=== PATIENT | female | born 1980 | race Caucasian/White ===

== ENCOUNTER 2024-12-05 08:26 | Inpatient (IN) ==
[2024-12-05] MEDS: KETOROLAC TROMETHAMINE 15 MG/ML VIAL ONE (08:52)
[2024-12-05] MEDS: KETOROLAC TROMETHAMINE 15 MG/ML VIAL IV ONE (08:52)
[2024-12-05] MEDS: ONDANSETRON INJ 2 MG/ML 2 ML VIAL IV STA (08:52)
[2024-12-05] MEDS: ONDANSETRON INJ 2 MG/ML 2 ML VIAL ONE (08:53)
[2024-12-05 08:56] LABS: Basophils # (auto) 0.06 K/uL (0.00-0.20); Basophils % (auto) 0.5 %; Eosinophils # (auto) 0.02 K/uL (0.00-0.50); Eosinophils % (auto) 0.2 %; Hematocrit (blood only) 42.1 % (37.0-47.0); Immature Granulocytes # (auto) 0.05 K/uL (0.01-0.20); Immature Granulocytes % (auto) 0.4 %; Lymphocytes % (auto) 8.6 %; Mean Corpuscular Hemoglobin 34.7 pg (25.0-34.0); Mean Corpuscular Hgb Conc 35.6 g/dL (32.0-36.0); Mean Corpuscular Volume 97.5 fL (80.0-100.0); Monocytes # (auto) 0.52 K/uL (0.11-0.59); Monocytes % (auto) 4.1 %; Neutrophils # (auto) 11.07 K/uL (1.40-6.50); Neutrophils % (auto) 86.2 %; Platelet Count 316 K/uL (130-400); RDW Standard Deviation 43.7 fL (36.4-46.3); Red Blood Count 4.32 M/uL (4.20-5.40); White Blood Count 12.82 K/ul (4.8-10.8)
[2024-12-05 08:56] LABS: iSTAT Creatinine 0.8 mg/dl (0.6-1.3); iSTAT Hemoglobin 15.6 g/dl (12.0-16.0); iSTAT Ionized Calcium 0.98 mmol/l (1.12-1.32); iSTAT Potassium 3.1 mmol/L (3.3-5.0)
[2024-12-05] MEDS: OPTIRAY 320 100ml IV ONE (09:01)
[2024-12-05] MEDS: HYDROmorphone INJ 0.5 MG/0.5 ML SYR IV STA ×2 (09:12→10:01)
[2024-12-05 09:13] LABS: Albumin Globulin Ratio 1.6 (0.9-2); Albumin Level 4.4 gm/dl (3.4-5.0); BUN Creatinine Ratio 14.1 (10-20); Bilirubin,Total 0.4 mg/dl (0.2-1.0); Creatinine Clr Calc Pharmacy 85.4 ml/min; Globulin 2.7 gm/dl (2.5-4.0); Potassium 3.3 mmol/L (3.5-5.1); Total Protein 7.1 gm/dl (6.0-8.3)
[2024-12-05 09:20] LABS: Troponin I High Sensitivity 6.2 pg/ml (0-14)
--- NOTE | 2024-12-05 09:23 | CT Scan Report ---
ABDOMEN AND PELVIS CT WITH IV CONTRAST CT DOSE: 640.36 mGy.cm HISTORY: abd pain, upper,, hypotensive, perf? TECHNIQUE: Multiaxial CT images of the abdomen and pelvis were performed following the IV administrat ion of 90 cc of Optiray, A dose lowering technique was utilized adhering to the principles of ALARA. COMPARISON STUDY: None FINDINGS: ABDOMEN: There is mild fatty liver. Otherwise the liver, gallbladder, spleen, pancreas, and adrenal g lands are unremarkable. No abdominal aortic aneurysm. Kidneys show no hydronephrosis or calculi. Pelvis: There is a 4 cm right sided uterine fibroid. No adnexal mass seen. Urinary bladder is nondist ended. There is mild diffuse colonic wall thickening. There are a few mildly dilated small bowel loop s at the lower central abdomen with mild wall thickening and adjacent inflammation. No other bowel in flammation or obstruction seen. There is trace low pelvic free fluid. No free air or abscess. No enla rged adenopathy. Osseous structures: No acute osseous findings. IMPRESSION: 1. Mild diffuse colitis and small area of focal enteritis. This can be seen in the setting of underly ing Crohn's disease. The inflamed small bowel loops are mildly dilated. If symptoms do not improve, f ollow-up CT scan would be recommended to make sure there is not a progressive small bowel obstruction . 2. Trace free fluid. No free air or abscess. ACT 112: Positive. There are findings on this exam that require communication between the performing entity and the patient following Patient Test Result Information Act ([place] Act 112) guidelines. The above report was generated using voice recognition software. It may contain grammatical, syntax o r spelling errors. Electronically signed by: Saravanan Hayden M.D. 12/05/2024 9:21 AM
--- NOTE | 2024-12-05 10:13 | Surgery Consultation ---
Date of Consultation December 05, 2024 Assessment & Plan (1) Colitis: Patient with acute onset of severe abdominal pain this morning with associated nausea and vomiting. Upon arrival to the emergency department originally she was hypotensive with SBP in the 80s and HR in the 120s. She did receive 1L fluid bolus to which she responded appropriately to and during evaluation her VSS. Her work up revealed elevated WBC at 12, lactic acidosis of [address] imaging concerning for colitis/enteritis vs possible developing small bowel obstruction. The patient's case was discussed with attending surgeon investigation officer , Dr. Gill and from a surgical standpoint recommend the following: -Keep NPO, continue appropriate fluid resuscitation, and start broad spectrum IV antibiotics with Zosyn -Repeat lactic acid level in 2 hours. If still elevated could consider CTA abdomen/pelvis to evaluate for possible ischemic changes. -Serial abdominal exams -Also recommend GI consult -Medical management per primary team, surgery will continue to closely follow Patient seen. Continues to have mid abdominal discomfort about 5 out of 10 [address] opioids. Reviewed repeat CT scan. Suspect at least mild ischemia most likely secondary to an adhesion causing a small bowel obstruction. Discussed risks and options. Will proceed urgently with a diagnostic laparoscopy possible open possible small bowel resection surgery as needed. We discussed bleeding infection blood clots injury to other organs etc. I have answered all her questions. She agrees with the plan. History of Present Illness Reason for Consultation: abominal pain History of Present Illness Patient is a 44-year-old female who presented to the emergency department with complaints of acute abdominal pain. She states the pain started roughly around 5AM and it had woken her up from sleep this morning. She states she's had nausea and she did vomit due to the pain. She rates her pain 10/10 and is severe in nature. The patient denies any history of ulcerative colitis or Crohn's disease and she has never had an colonoscopy in the past. She is passing gas and her last bowel movement was yesterday. Upon arrival to the emergency department she was hypotensive with SBP in the 80s and HR in the 120s. The patient was given 1L bolus of fluids to which she responded appropriately to. The patient's workup revealed a WBC of 12.8, elevated lactic acid at 7, and CT imaging concerning for diffuse colitis and focal enteritis along with possible SBO. The patient was seen and evaluated this morning in the emergency department. At time of evaluation patient with stable vital signs with SBP in the 130s and HR in the 80s. The patient continues to complain about severe abdominal pain in the upper abdomen region and she states that pain medication has not helped. She states she has 2 C-sections in the past otherwise denies any other previous abdominal surgeries. Allergies Allergy/AdvReac Type Severity Reaction Status Date / Time Sulfa (Sulfonamide Allergy Verified 11/10/24 09:59 Antibiotics) Home Medications Medication Instructions Recorded Confirmed Type cholecalciferol (vitamin D3) 25 25 mcg PO DAILY 06/27/24 12/05/24 History mcg (1,000 unit) tablet mecobalamin (vitamin B12) 1,000 1,000 mcg PO DAILY #30 tabs 11/10/24 12/05/24 Rx mcg chewable tablet primidone 250 mg tablet 375 mg (1.5 x 250 mg) PO HS #45 11/10/24 12/05/24 Rx tabs venlafaxine 75 mg capsule,extended 75 mg PO DAILY 30 days #30 caps 11/10/24 12/05/24 Rx release 24 hr Patient History Surgical History Hx of section Family History Mother Breast cancer Hypertension Father Hypertension Denies family history of Ovarian cancer Prostate cancer Diabetes Dementia Depression Heart disease Myocardial infarction Lung cancer Colorectal cancer Stroke Social History Smoking Status: Never smoker Second Hand Exposure: No; Do You Dip or Chew Tobacco: No; Hx Alcohol Use: Yes Alcohol type: beer, wine and hard liquor Alcohol Intake Frequency: 4 or More x per/Week Hx Substance Use: No Preferred Language: Chinese Communication Ability: Effective Visual Impairment: No Limitations Hearing Ability: Normal Timekeeping Supervisor Required: No Beliefs That Will Affect Care: None marital status: Current Living Situation: Spouse and Family Current Living Situation Comment: 3 story house with and 2 kids, 2 cats and one dog. current occupational status: unemployed How many Children do You have: 2 Feels Safe at Home: Yes Childhood Exposure to Second-Hand Smoke: No Diet: regular caffeine: Yes Dental Care, Regularly: Yes Physical Activity Frequency: Does not Exercise Seatbelt Use: always Sunscreen Use: Yes Assistive Devices: None Review of Systems Constitutional: + sweats; no fever, no chills and no bod y aches Respiratory: no cough and no chest congestion Cardiovascular: no chest pain, no palpitations and no syncope Gastrointestinal: + abdominal pain, + nausea and + vomitin g Genitourinary: no dysuria, no difficulty urinating and no hematuria Physical Exam Constitutional: WD/WN, vitals as above Respiratory: normal respiratory effort, lungs clear to auscultation Cardiovascular: RRR, no murmur, no edema Gastrointestinal (Abdomen): Abdomen soft, nondistended, +moderate TTP in the b/l upper quadrants with voluntary guarding Skin: no rashes, warm and dry Results & Data Vital Signs (Past 12 Hours) Vital Signs Temp Pulse Pulse Resp BP Pulse Ox O2 Del Method 12/05/24 09:27 85 16 160/90 H 98 Room Air 12/05/24 08:46 84 20 115/56 L 94 12/05/24 08:42 64 12/05/24 08:40 36.0 C L 101 H 20 81/67 L 96 12/05/24 08:28 126 H 20 100 Room Air Diagnostic Findings ABDOMEN AND PELVIS CT WITH IV CONTRAST CT DOSE: 640.36 mGy.cm HISTORY: abd pain, upper,, hypotensive, perf? TECHNIQUE: Multiaxial CT images of the abdomen and pelvis were performed following the IV administration of 90 cc of Optiray, A dose lowering technique was utilized adhering to the principles of ALARA. COMPARISON STUDY: None FINDINGS: ABDOMEN: There is mild fatty liver. Otherwise the liver, gallbladder, spleen, pancreas, and adrenal glands are unremarkable. No abdominal aortic aneurysm. Kidneys show no hydronephrosis or calculi. Pelvis: There is a 4 cm right sided uterine fibroid. No adnexal mass seen. Urinary bladder is nondistended. There is mild diffuse colonic wall thickening. There are a few mildly dilated small bowel loops at the lower central abdomen with mild wall thickening and adjacent inflammation. No other bowel inflammation or obstruction seen. There is trace low pelvic free fluid. No free air or abscess. No enlarged adenopathy. Osseous structures: No acute osseous findings. IMPRESSION: 1. Mild diffuse colitis and small area of focal enteritis. This can be seen in the setting of underlying Crohn's disease. The inflamed small bowel loops are mildly dilated. If symptoms do not improve, follow-up CT scan would be recommended to make sure there is not a progressive small bowel obstruction. 2. Trace free fluid. No free air or abscess. PG Care Time/CCT Total # of Minutes Spent Total Time Spent with Patient: Total time spent is greater than 50% in coordination of care (as documented) at patient's floor/unit and/or counseling patient: [place] [address] IN/OBS CONSULT LVL 2,35M Patient Type New Medical Decision Making Straight Forward Diagnoses Colitis K52.9
[2024-12-05] MEDS: ACETAMINOPHEN 1,000 MG/100 ML VIAL IV STA (10:30)
[2024-12-05 11:15] LABS: Appearance Urine Clear (Clear); Bacteria Urine Automated 1+ (None Seen); Bilirubin Urine Negative (Negative); Blood Urine Trace (Negative); Cast Urine Automated 0-2 /lpf (0-2); Color Urine Yellow; Glucose Urine UA Negative (Negative); Ketones Urine 3+ (Negative); Leukocyte Esterase Urine Negative (Negative); Nitrite Urine Negative (Negative); Protein Urine Negative (Negative); RBC Urine Automated 0-2 /hpf (0-2); Specific Gravity Urine > 1.045 (1.000-1.030); Urobilinogen Urine Negative (Negative); WBC Urine Automated 0-5 /hpf (0-5)
[2024-12-05] MEDS ORDERED: MoRPHine SULFATE 2 MG/ML CARP IV PRN (11:18)
[2024-12-05] MEDS: cefTRIAXone SODIUM 2,000 MG/50 ML BAG IV STA (11:30)
[2024-12-05] MEDS: MoRPHine SULFATE 2 MG/ML CARP IV STA (11:30)
--- NOTE | 2024-12-05 11:33 | Emergency Department Note ---
Impression & Plan Colitis, Enteritis, Elevated lactic acid level ED Provider Note NAME: SADI CLAROS AGE: 44 SEX: F : 1980 ARRIVES VIA: Walk-In INFORMANT: Patient, ED PROVIDER(S): Jenelle Lance MD CHIEF COMPLAINT: Abdominal pain, severe HPI: This is a 44-year-old here with her abdominal pain. Patient states that this morning she began having severe abdominal pain in the upper quadrants. She notes nausea due to the pain. She notes previously completing her period without complication. She reports no ovarian issues. No previous surgeries. No chest pain or shortness of breath. No back pain. ROS: See above HPI for pertinent positives & negatives. A total of 10 systems reviewed and were otherwise negative. PAST MEDICAL HISTORY: See Below PAST SURGICAL HISTORY: See Below FAMILY HISTORY: See Below SOCIAL HISTORY: See Below HOME MEDICATIONS: See Below ALLERGIES: See Below VITALS: See Below PHYSICAL EXAMINATION: General: Writhing in stretcher due to pain Head: Normocephalic and atraumatic Eyes: Normal inspection, extraocular muscles intact Ear, nose, throat: Normal external exam Neck: Normal range of motion Respiratory: lungs clear to auscultation bilaterally Cardiovascular: Regular rate/rhythm, no murmur GI: Soft, minimally tender, no rebound or guarding Extremities: nontender, moves all extremities Neuro: The patient awake and alert, appropriately conversive, no focal deficits, symmetric faces Skin: Warm, dry, and intact MEDICAL DECISION MAKING: This is a 44-year-old female presenting for abdominal pain. Patient is have severe abdominal pain today. It appears to be localized to the upper quadrants however she does definitely tender on my exam. Will do screening blood work, lactic acid and CT Abdo/pelvis. Dgygy-ms-gxil creatinine 0.8 normal sent to CAT scan emergently. Patient is blood pressure initially was 80s over 40s. Patient 1 L normal saline with improvement into the 110s. -Lactic acid significant elevated at 7.9 - CT imaging reveals signs of mild diffuse colitis/focal enteritis. Concern for Crohn's. - With patient's Ct imaging findings, elevated lactic and pain a portion exam, consider mesenteric ischemia. Patient will have risk factors to include A-fib or history of blood clotting disorder. -Care discussed with surgical service, Dr. Zamorano with [facility] Discussed clinical concerns and need for bedside evaluation. They will see the patient at bedside. -Recommendations as per surgical service to include IVF, IV antibiotics, GI consult and rechecking lactic with admission to medicine. - Case discussed with Dr. Doherty for admission Differential diagnosis: Mesenteric ischemia, SBO, appendicitis, cholecystitis, pancreatitis, bowel perforation, diverticulitis Independent History obtained from: Diagnostics interpreted by me: ECG: ECG independently interpreted by me with normal sinus rhythm, rate of 94, normal axis, normal LA, normal QRS, normal QTc, no ST segment elevations consistent with STEMI criteria Cardiac Monitoring: An order was placed for continuous cardiac monitoring. The monitor shows a rate of 82 with sinus rhythm. Critical Care Note: I have personally spent 42 minutes of critical care time in the direct management of this patient. This includes bedside care, interpretation of diagnostic studies, and testing, discussion with consultants, patient, and family members, and other required patient management activities. This 42 minutes is in excess of all separately billable procedures. Past Med/Surg History Problem List (Updated 12/05/24 @ 15:12 by Jenelle Lance MD) Elevated lactic acid level (Acute) Enteritis (Acute) Colitis (Acute) Abdominal pain Septic shock Colitis Headache Acute adjustment disorder with mixed anxiety and depressed mood Benign essential tremor Low ferritin Vitamin D deficiency Tremor Surgical History Hx of section Family History Mother Breast cancer Hypertension Father Hypertension Denies family history of Ovarian cancer Prostate cancer Diabetes Dementia Depression Heart disease Myocardial infarction Lung cancer Colorectal cancer Stroke Social History Smoking Status: Never smoker Second Hand Exposure: No; Do You Dip or Chew Tobacco: No; Hx Alcohol Use: Yes Alcohol type: beer, wine and hard liquor Alcohol Intake Frequency: 4 or More x per/Week Hx Substance Use: No Preferred Language: Georgian Communication Ability: Effective Visual Impairment: No Limitations Hearing Ability: Normal Roving Department End Finder Required: No Beliefs That Will Affect Care: None marital status: Current Living Situation: Spouse and Family Current Living Situation Comment: 3 story house with and 2 kids, 2 cats and one dog. current occupational status: unemployed How many Children do You have: 2 Feels Safe at Home: Yes Childhood Exposure to Second-Hand Smoke: No Diet: regular caffeine: Yes Dental Care, Regularly: Yes Physical Activity Frequency: Does not Exercise Seatbelt Use: always Sunscreen Use: Yes Assistive Devices: None Allergies Allergies Allergy/AdvReac Type Severity Reaction Status Date / Time Sulfa (Sulfonamide AdvReac Intermediate Vomiting Verified 12/05/24 13:48 Antibiotics) Home Meds Home Medications Medication Instructions Recorded Confirmed cholecalciferol (vitamin D3) 25 25 mcg PO DAILY 06/27/24 12/05/24 mcg (1,000 unit) tablet Previous Rx's Medication Instructions Recorded mecobalamin (vitamin B12) 1,000 1,000 mcg PO DAILY #30 tabs 11/10/24 mcg chewable tablet primidone 250 mg tablet 375 mg (1.5 x 250 mg) PO HS #45 11/10/24 tabs venlafaxine 75 mg capsule,extended 75 mg PO DAILY 30 days #30 caps 11/10/24 release 24 hr Results & Data (ED) Vital Signs Vital Signs - 24 hr 12/05/24 08:28 12/05/24 08:40 12/05/24 08:42 Temperature 36.0 C L Temperature Source Oral Pulse Rate 126 H 64 Pulse Rate [Left Finger] 101 H Respiratory Rate 20 20 Respiratory Effort / Characteristics Non-Labored Spontaneous Respiratory Depth Normal Blood Pressure [Left Arm] 81/67 L Blood Pressure Mean [Left Arm] 71 Pulse Oximetry 100 96 Oxygen Delivery Method Room Air Sepsis Recent Fever Within 48 Hours No Sepsis New/Unexplained Change in Mental Status N/A Sepsis Action Taken by Nursing No Action Required 12/05/24 08:46 12/05/24 09:27 Temperature Temperature Source Pulse Rate Pulse Rate [Left Finger] 84 85 Respiratory Rate 20 16 Respiratory Effort / Characteristics Respiratory Depth Blood Pressure [Left Arm] 115/56 L 160/90 H Blood Pressure Mean [Left Arm] 75 113 Pulse Oximetry 94 98 Oxygen Delivery Method Room Air Sepsis Recent Fever Within 48 Hours Sepsis New/Unexplained Change in Mental Status Sepsis Action Taken by Nursing Laboratory Data 12/05/24 08:39 12/05/24 08:39 Lab Results 12/05/24 12/05/24 12/05/24 Range/Units 08:39 08:45 09:24 WBC 12.82 H (4.8-10.8) K/ul RBC 4.32 (4.20-5.40) M/uL Hgb 15.0 (12.0-16.0) g/dl POC Hgb 15.6 (12.0-16.0) g/dl Hct 42.1 (37.0-47.0) % POC Hct 46 (37-47) % MCV 97.5 (80.0-100.0) fL MCH 34.7 H (25.0-34.0) pg MCHC 35.6 (32.0-36.0) g/dL RDW Std Deviation 43.7 (36.4-46.3) fL RDW Coeff of Roberth 12.0 (11.5-14.5) % Plt Count 316 (130-400) K/uL MPV 10.0 (9.4-12.4) fL Immature Gran % (Auto) 0.4 % Neut % (Auto) 86.2 % Lymph % (Auto) 8.6 % [place] % (Auto) 4.1 % Eos % (Auto) 0.2 % Baso % (Auto) 0.5 % Neut # (Auto) 11.07 H (1.40-6.50) K/uL Lymph # (Auto) 1.10 L (1.20-3.40) K/uL [place] # (Auto) 0.52 (0.11-0.59) K/uL Eos # (Auto) 0.02 (0.00-0.50) K/uL Baso # (Auto) 0.06 (0.00-0.20) K/uL Immature Gran # (Auto) 0.05 (0.01-0.20) K/uL POC Sodium 141 (135-144) mmol/L Sodium 143 (136-145) mmol/L POC Potassium 3.1 L (3.3-5.0) mmol/L Potassium 3.3 L (3.5-5.1) mmol/L POC Chloride 105 (101-112) mmol/L Chloride 103 (98-107) mmol/L Carbon Dioxide 18 L (21-32) mmol/L POC Total CO2 15 L (24-31) mmol/L Anion Gap 22 H (3-11) POC Anion Gap 26.0 H (16-25) mmol/L POC BUN 9 (7-18) mg/dl BUN 10 (6-23) mg/dl Creatinine 0.71 (0.6-1.2) mg/dl POC Creatinine 0.8 (0.6-1.3) mg/dl Est Cr Clr Drug Dosing 85.4 ml/min eGFR 108.80 BUN/Creatinine Ratio 14.1 (10-20) Glucose 131 H (70-99(Fasting)) mg/dl POC Glucose (other) 133 H (70-99) mg/dl Lactate 7.9 H* (0.4-2.0) mmol/L Calcium 9.0 (8.6-10.3) mg/dl POC Ioniz Calcium Shruthi 0.98 L (1.12-1.32) mmol/l Magnesium 1.7 (1.7-2.4) mg/dl Total Bilirubin 0.4 (0.2-1.0) mg/dl AST 43 H (13-39) U/L ALT 33 (7-52) U/L Alkaline Phosphatase 61 (34-104) U/L Troponin I High Sens 6.2 (0-14) pg/ml Total Protein 7.1 (6.0-8.3) gm/dl Albumin 4.4 (3.4-5.0) gm/dl Globulin 2.7 (2.5-4.0) gm/dl Albumin/Globulin Ratio 1.6 (0.9-2) Lipase 34 (11-82) U/L HCG, Qual Negative (Negative) Administered Medications Lactated Ringer's (Lr) 1,000 mls @ 125 mls/hr IV .Q8H [facility] Stop: 12/08/24 11:29 Last Admin: 12/05/24 12:49 Dose: 125 mls/hr Documented By: CARMEL Discontinued Medications Hydromorphone HCl (Hydromorphone Inj 0.5 Mg/0.5 Ml Syr) 0.5 mg IV NOW STA Stop: 12/05/24 09:08 Last Admin: 12/05/24 09:12 Dose: 0.5 mg Documented By: BEV Hydromorphone HCl (Hydromorphone Inj 0.5 Mg/0.5 Ml Syr) 0.5 mg IV NOW STA Stop: 12/05/24 09:58 Last Admin: 12/05/24 10:01 Dose: 0.5 mg Documented By: ALBERT Acetaminophen (Ofirmev) 1,000 mg in 100 mls @ 400 mls/hr IV NOW STA Stop: 12/05/24 10:29 Last Infusion: 12/05/24 10:45 Dose: Infused Documented By: Admin: 12/05/24 10:30 Dose: 400 mls/hr Documented By: ALBERT Ceftriaxone Sodium (Rocephin) 2,000 mg in 50 mls @ 100 mls/hr IV NOW STA Stop: 12/05/24 11:15 Last Infusion: 12/05/24 12:50 Dose: Infused Documented By: Admin: 12/05/24 11:30 Dose: 100 mls/hr Documented By: ADEOLA Potassium Chloride (K Gavin / Wtr) 10 meq in 100 mls @ 100 mls/hr IV ONE ONE Stop: 12/05/24 12:00 Last Infusion: 12/05/24 13:17 Dose: Infused Documented By: Admin: 12/05/24 12:17 Dose: 100 mls/hr Documented By: ALBERT Piperacillin Sod/Tazobactam Sod (Zosyn) 4.5 gm in 100 mls @ 200 mls/hr IV NOW STA; Protocol Stop: 12/05/24 11:54 Last Infusion: 12/05/24 12:50 Dose: Infused Documented By: Admin: 12/05/24 12:05 Dose: 200 mls/hr Documented By: ALBERT Pantoprazole Sodium (Protonix) 40 mg in 10 mls @ 5 mls/min IV NOW ONE Stop: 12/05/24 11:27 Last Admin: 12/05/24 11:59 Dose: 5 mls/min Documented By: ALBERT Ioversol (Optiray 320 100ml) 94 ml IV ONCE ONE Stop: 12/05/24 09:02 Last Admin: 12/05/24 09:01 Dose: 94 ml Documented By: YONG Ioversol (Optiray 320 125ml) 118 ml IV ONCE ONE Stop: 12/05/24 12:12 Last Admin: 12/05/24 12:12 Dose: 118 ml Documented By: VENKAT Ketorolac Tromethamine (Ketorolac Tromethamine 15 Mg/Ml Vial) 15 mg IV NOW ONE Stop: 12/05/24 08:52 Last Admin: 12/05/24 08:52 Dose: 15 mg Documented By: BEV Ketorolac Tromethamine (Ketorolac Tromethamine 15 Mg/Ml Vial) Confirm Administered Dose 15 mg .ROUTE .STK-MED ONE Stop: 12/05/24 08:52 Last Admin: 12/05/24 08:52 Dose: Not Given Documented By: BEV Morphine Sulfate (Morphine Sulfate 2 Mg/Ml Carp) 1 mg IV NOW STA Stop: 12/05/24 11:17 Last Admin: 12/05/24 11:30 Dose: 1 mg Documented By: ADEOLA Ondansetron HCl (Ondansetron Inj 2 Mg/Ml 2 Ml Vial) Confirm Administered Dose 4 mg .ROUTE .STK-MED ONE Stop: 12/05/24 08:51 Last Admin: 12/05/24 08:53 Dose: Not Given Documented By: BEV Ondansetron HCl (Ondansetron Inj 2 Mg/Ml 2 Ml Vial) 4 mg IV NOW STA Stop: 12/05/24 08:52 Last Admin: 12/05/24 08:52 Dose: 4 mg Documented By: BEV Imaging Data Radiologist's Impression: Abdomen/Pelvis CT 12/05/24 08:[address] WITH IV CONTRAST CT DOSE: 640.36 mGy.cm HISTORY: abd pain, upper,, hypotensive, perf? TECHNIQUE: Multiaxial CT images of the abdomen and pelvis were performed following the IV administration of 90 cc of Optiray, A dose lowering technique was utilized adhering to the principles of ALARA. COMPARISON STUDY: None FINDINGS: ABDOMEN: There is mild fatty liver. Otherwise the liver, gallbladder, spleen, pancreas, and adrenal glands are unremarkable. No abdominal aortic aneurysm. Kidneys show no hydronephrosis or calculi. Pelvis: There is a 4 cm right sided uterine fibroid. No adnexal mass seen. Urinary bladder is nondistended. There is mild diffuse colonic wall thickening. There are a few mildly dilated small bowel loops at the lower central abdomen with mild wall thickening and adjacent inflammation. No other bowel inflammation or obstruction seen. There is trace low pelvic free fluid. No free air or abscess. No enlarged adenopathy. Osseous structures: No acute osseous findings. IMPRESSION: 1. Mild diffuse colitis and small area of focal enteritis. This can be seen in the setting of underlying Crohn's disease. The inflamed small bowel loops are mildly dilated. If symptoms do not improve, follow-up CT scan would be recommended to make sure there is not a progressive small bowel obstruction. 2. Trace free fluid. No free air or abscess. ACT 112: Positive. There are findings on this exam that require communication between the performing entity and the patient following Patient Test Result Information Act ([place] Act 112) guidelines. The above report was generated using voice recognition software. It may contain grammatical, syntax or spelling errors. Electronically signed by: Saravanan Hayden M.D. 12/05/2024 9:21 AM Discharge Plan Visit Data Chief Complaint: Abdominal Pain Stated Complaint: INTENSE ABD CRAMPS, VOMITING ED Provider: Jenelle Lance Discharge Problem: Colitis, Enteritis, Elevated lactic acid level Patient Disposition: Admitted As Inpatient Condition: Critical Discharge Instructions Interventions: ED Discharge Assessment Last Done: 12/05/24 12:27
--- NOTE | 2024-12-05 11:53 | History & Physical Report ---
Date of Service December 05, 2024 Assessment & Plan (1) Septic shock: (2) Colitis: Plan This is a 44-year-old female with past medical history of acute adjustment disorder with mixed anxiety/depression and benign essential tremor who presented to the emergency department on 12/05/2024 with a chief complaint of abdominal pain. While in the emergency department she was found to be significantly hypotensive on arrival with a blood pressure of 81/67. This did improve after 1 L of IV fluids. She was found to have mild diffuse colitis and focal enteritis on her CTAP. Her CBC did reveal an elevated WBC of 12.82. Her potassium was mildly low at 3.3. Her renal function was within normal limits. Her lactate was found to be elevated at 7.9. Her LFTs did reveal a minimal elevation of her AST but remainder were WNL. Her lipase was negative at 34. She was given Dilaudid, Toradol, and Zofran without relief of her symptoms. She was also given Rocephin and Flagyl. Surgery also was consulted on the patient who had recommended to keep her n.p.o. and to repeat a lactic acid in 2 hours. If that have been elevated then consider CTA to evaluate for ischemic changes. It was also recommended by the surgical team to have a GI consultation as well. Procalcitonin, magnesium, blood cultures, urinalysis, stool studies all pending at time of admission. #Septic Shock secondary to colitis - awoke suddenly around 5:30 am day of arrival w/ severe abdominal pain/NV. With criteria of septic shock including hypotension/tachycardic on arrival, elevated lactate of 7.9, source of infection being colitis, WBC greater than 12. CTAP: Mild diffuse colitis/small area of focal enteritis. Seen in the setting of underlying Crohn's disease. Inflamed small bowel loops mildly dilated. If do not improve, follow-up CT scan would be recommended to make sure there is lot of progressive small bowel obstruction Urinalysis negative CBC with leukocytosis of 12.82. BMP with mild hypokalemia of 3.3, CO2 18, anion gap 22, creatinine WNL LFTs with mild elevation of AST (appears elevated chronically) but remainder within normal limits; Lipase WNL Lactate elevated at 7.9 with repeat at 3.3 Procal pending; BC pending Surgery consulted -> recommending NPO status; consider CTA if not improving; GI consult s/p Rocephin/Flagyl --> switch to IV Zosyn on admission. Morphine prn for pain; Zofran prn for N/V Continue IVF Maintain NPO status until pain improves. AM CBC/CMP #Anxiety/Depression: Effexor - hold until able to tolerate PO #Essential tremor - Primidone - hold until able to tolerate PO DVT Proph- SCDs Dispo-admit to tele This case was discussed with Dr. Doherty at time of admission. Updated at bedside 12/05. History of Present Illness Chief Complaint: Abdominal pain Primary Care Provider: JASWINDER Blakely This is a 44-year-old female with past medical history of acute adjustment disorder with mixed anxiety/depression and benign essential tremor who presented to the emergency department on 12/05/2024 with a chief complaint of abdominal pain. The patient was seen and examined with her at bedside. She states that she awoke suddenly this morning around 5:30 AM with severe abdominal pain. She rates it a 10 out of 10 on the pain scale. She states that she has also had associated nausea and vomiting with this. She denies any hematemesis. She states that her last bowel movement was yesterday and it was normal for her. She denies any passage of blood from her bottom. She states that she has not passed gas since this started. She states that she did not eat anything atypical for her yesterday. She states that she did have some wine yesterday which was normal for her. She denies any illicit substance or tobacco use. She denies any chest pain, shortness of breath, lower extremity edema. She denies any urinary urgency/frequency/hematuria. She denies any significant GI family history. She also has had 2 C-sections in the past but denies any further surgeries. While in the emergency department she was found to be significantly hypotensive on arrival with a blood pressure of 81/67. This did improve after 1 L of IV fluids. She was found to have mild diffuse colitis and focal enteritis on her CTAP. Her CBC did reveal an elevated WBC of 12.82. Her potassium was mildly low at 3.3. Her renal function was within normal limits. Her lactate was found to be elevated at 7.9. Her LFTs did reveal a minimal elevation of her AST but remainder were WNL. Her lipase was negative at 34. She was given Dilaudid, Toradol, and Zofran without relief of her symptoms. She was also given Rocephin and Flagyl. Surgery also was consulted on the patient who had recommended to keep her n.p.o. and to repeat a lactic acid in 2 hours. If that have been elevated then consider CTA to evaluate for ischemic changes. It was also recommended by the surgical team to have a GI consultation as well. Procalcitonin, magnesium, blood cultures, urinalysis, stool studies all pending at time of admission. Allergies Allergy/AdvReac Type Severity Reaction Status Date / Time Sulfa (Sulfonamide AdvReac Intermediate Vomiting Verified 12/05/24 13:48 Antibiotics) Home Medications Medication Instructions Recorded Confirmed Type cholecalciferol (vitamin D3) 25 25 mcg PO DAILY 06/27/24 12/05/24 History mcg (1,000 unit) tablet mecobalamin (vitamin B12) 1,000 1,000 mcg PO DAILY #30 tabs 11/10/24 12/05/24 Rx mcg chewable tablet primidone 250 mg tablet 375 mg (1.5 x 250 mg) PO HS #45 11/10/24 12/05/24 Rx tabs venlafaxine 75 mg capsule,extended 75 mg PO DAILY 30 days #30 caps 11/10/24 12/05/24 Rx release 24 hr Past Med/Surg History Problem List (Updated 12/05/24 @ 12:51 by Rakan Barnes PA-C) Abdominal pain Septic shock Colitis Headache Acute adjustment disorder with mixed anxiety and depressed mood Benign essential tremor Low ferritin Vitamin D deficiency Tremor Surgical History Hx of section Family History Mother Breast cancer Hypertension Father Hypertension Denies family history of Ovarian cancer Prostate cancer Diabetes Dementia Depression Heart disease Myocardial infarction Lung cancer Colorectal cancer Stroke Social History Smoking Status: Never smoker Second Hand Exposure: No; Do You Dip or Chew Tobacco: No; Hx Alcohol Use: Yes Alcohol type: beer, wine and hard liquor Alcohol Intake Frequency: 4 or More x per/Week Hx Substance Use: No Preferred Language: Welsh Communication Ability: Effective Visual Impairment: No Limitations Hearing Ability: Normal Right Of Way Clearer Required: No Beliefs That Will Affect Care: None marital status: Current Living Situation: Spouse and Family Current Living Situation Comment: 3 story house with and 2 kids, 2 cats and one dog. current occupational status: unemployed How many Children do You have: 2 Feels Safe at Home: Yes Childhood Exposure to Second-Hand Smoke: No Diet: regular caffeine: Yes Dental Care, Regularly: Yes Physical Activity Frequency: Does not Exercise Seatbelt Use: always Sunscreen Use: Yes Assistive Devices: None Review of Systems Review of Systems: All systems reviewed & are unremarkable except as noted in HPI & below Physical Exam Physical Exam: General: mild/moderate distress. non-toxic appearing; well nourished; cooperative HEENT: normocephalic, atraumatic; PERRLA w/ EOMs intact; vision/hearing grossly intact Skin: warm, dry; no cyanosis; no rashes/bruising/lesions/erythema CV: RRR; S1/S2 normal; no M/R/G. Lungs: no acute respiratory distress; symmetrical chest wall expansion; CTA Abd: soft; tenderness to palpation in epigastric region. minimal BS MSK: no LE edema b/l Neuro/Psych: AxOx3; normal mood/affect; fluent speech; no focal deficits Results & Data Results & Data Vital Signs (Past 12 Hours) Vital Signs Temp Pulse Pulse Resp BP Pulse Ox O2 Del Method 12/05/24 09:27 85 16 160/90 H 98 Room Air 12/05/24 08:46 84 20 115/56 L 94 12/05/24 08:42 64 12/05/24 08:40 36.0 C L 101 H 20 81/67 L 96 12/05/24 08:28 126 H 20 100 Room Air Laboratory Results CBC, BMP, procalcitonin, lactate reviewed Diagnostic Findings CT abdomen/pelvis reviewed ECG Additional Comments: ECG 12/05/2024 at 9:21 AM with normal sinus rhythm, rate 94, QTc prolonged at 505, no acute ischemic changes Supervising Physician Co-Signing Physician Notes PA Supervision Note: I personally saw and examined the patient. I verified all carrillo points and agree with YUNIEL Dee with the following exceptions and/or additions: S-patient presents with acute onset of severe generalized abdominal pain but worse in the epigastric region that came on at 530 this morning and was associated with nausea/vomiting. Last bowel movement yesterday. Has never had any GI symptoms in the past. She has had 2 C-sections but no other abdominal surgeries. She received multiple doses of opioids in the ER. She was hypotensive which responded to IV fluid boluses and her lactate was severely elevated at 7.9. I discussed her care with general surgery as well as GI on the phone at the time of admission. After admission, we repeated a CT angiogram of the abdomen/pelvis which did reveal an internal hernia with likely closed-loop bowel obstruction. I discussed her care again with surgery who will take her to the OR today for exploratory laparoscopy. O- Vitals reviewed Gen: AAOx3, NAD HEENT: Anicteric sclerae, EOMI CV: RRR no mgr nl S1S2 Pulm: CTAB no wcr Abd: +BS soft diffusely tender but more so in the epigastric region with guarding, no rebound Ext: No edema, 2+ DP pulses Skin: No rashes, warm/dry Neuro: Full strength throughout [id number]-old female here with severe abdominal pain, septic shock and lactic acidosis, most likely with internal hernia with closed loop bowel obstruction and bowel ischemia. - Admit with pain control, n.p.o., IV fluids, IV Zosyn, and urgent surgery consultation - Plan otherwise outlined as above, holding home p.o. meds until able to take p.o. PG Care Time/CCT Total # of Minutes Spent Total Time Spent with Patient: Total time spent is greater than 50% in coordination of care (as documented) at patient's floor/unit and/or counseling patient: Coding Level of Care Code 93329 INT INP/OBS CARE 3/75MIN Diagnoses Septic shock A41.9; R65.21 Colitis K52.9
[2024-12-05] MEDS: PANTOprazole 40 MG/10 ML SYR IV ONE (11:59)
[2024-12-05] MEDS: PIPERACILLIN/TAZOBACTAM 4.5 GM/100 ML BAG IV STA (12:05)
[2024-12-05] MEDS: OPTIRAY 320 125ml IV ONE (12:12)
[2024-12-05] MEDS: POTASSIUM CHLORIDE / WTR 10 MEQ/100 ML PLCT IV ONE (12:17)
[2024-12-05 12:25] LABS: Magnesium 1.7 mg/dl (1.7-2.4)
[2024-12-05] MEDS: LACTATED RINGER'S 1,000 ML IV SCH ×2 (12:49→17:09)
--- NOTE | 2024-12-05 12:49 | Gastrointestinal Consultation ---
Date of Consultation December 05, 2024 Assessment & Plan (1) Abdominal pain: Patient admitted with sudden onset abdominal pain. There is concern for possible mesenteric ischemia. Patient was seen alongside Dr. Kapoor who helped advise on plan. - would await the results of the CTA that she had done. - continue with pain control. - continue with protonix 40mg BID. - further recommendations to follow. Supervising Physician Co-Signing Physician Notes Reviewed with Dr Doherty, concern for bowel ischmia, recommend stat CTA History of Present Illness Reason for Consultation: colitis, enteritis Requesting Physician: Yesi RAMIRES Attending Physician: Kellie Doherty MD History of Present Illness Patient is a 44 year old female with a past medical history of acute adjustment disorder, mixed anxiety/depression, and benign essential tremor who presented to the emergency department on 12/05/2024 with a chief complaint of abdominal pain. She states that she awoke suddenly this morning around 5:30 AM with severe abdominal pain. Pain rated a 10/10 on the pain scale. She states that she has also had associated nausea and vomiting with this. She denies any hematemesis. She states that her last bowel movement was yesterday and it was normal for her. She states that she has not passed gas or moved bowels since this started. She states that she did not eat anything atypical for her yesterday. She denies any significant GI family history. She also has had 2 C-sections in the past but denies any further surgeries. no issues with clotting with her . Father had history of PE. While in the emergency department she was found to be significantly hypotensive on arrival with a blood pressure of 81/67. This did improve after 1 L of IV fluids. She was found to have mild diffuse colitis and focal enteritis on her CTAP. Her CBC did reveal an elevated WBC of 12.82. Her potassium was mildly low at 3.3. Her renal function was within normal limits. Her lactate was found to be elevated at 7.9. Her LFTs did reveal a minimal elevation of her AST but remainder were WNL. Her lipase was negative at 34. She was given Dilaudid, Toradol, and Zofran without relief of her symptoms. Morphine did seem to help with pain. She was also given Rocephin and Flagyl. Surgery also was consulted on the patient who had recommended to keep her n.p.o. and to repeat a lactic acid in 2 hours. If that have been elevated then consider CTA to evaluate for ischemic changes. CTA has been done but results are pending. Procalcitonin 0.03, magnesium 1.7. blood cultures, urinalysis, stool studies all pending currently. Pain has improved since she was given morphine. Allergies Allergy/AdvReac Type Severity Reaction Status Date / Time Sulfa (Sulfonamide AdvReac Intermediate Vomiting Verified 12/05/24 13:48 Antibiotics) Home Medications Medication Instructions Recorded Confirmed Type cholecalciferol (vitamin D3) 25 25 mcg PO DAILY 06/27/24 12/05/24 History mcg (1,000 unit) tablet mecobalamin (vitamin B12) 1,000 1,000 mcg PO DAILY #30 tabs 11/10/24 12/05/24 Rx mcg chewable tablet primidone 250 mg tablet 375 mg (1.5 x 250 mg) PO HS #45 11/10/24 12/05/24 Rx tabs venlafaxine 75 mg capsule,extended 75 mg PO DAILY 30 days #30 caps 11/10/24 12/05/24 Rx release 24 hr Patient History Surgical History Hx of section Family History Mother Breast cancer Hypertension Father Hypertension Denies family history of Ovarian cancer Prostate cancer Diabetes Dementia Depression Heart disease Myocardial infarction Lung cancer Colorectal cancer Stroke Social History Smoking Status: Never smoker Second Hand Exposure: No; Do You Dip or Chew Tobacco: No; Hx Alcohol Use: Yes Alcohol type: beer, wine and hard liquor Alcohol Intake Frequency: 4 or More x per/Week Hx Substance Use: No Preferred Language: Ethiopian Communication Ability: Effective Visual Impairment: No Limitations Hearing Ability: Normal Floor Finisher Required: No Beliefs That Will Affect Care: None marital status: Current Living Situation: Spouse and Family Current Living Situation Comment: 3 story house with and 2 kids, 2 cats and one dog. current occupational status: unemployed How many Children do You have: 2 Feels Safe at Home: Yes Childhood Exposure to Second-Hand Smoke: No Diet: regular caffeine: Yes Dental Care, Regularly: Yes Physical Activity Frequency: Does not Exercise Seatbelt Use: always Sunscreen Use: Yes Assistive Devices: None Review of Systems Review of Systems: All systems reviewed & are unremarkable except as noted in HPI & below Physical Exam Constitutional: WD/WN, vitals as above Respiratory: normal respiratory effort, lungs clear to auscultation Cardiovascular: Rate/Rhythm: regular rate and regular rhythm Gastrointestinal (Abdomen): epigastric tenderness to palpation, no guarding, soft, normal bowel sounds. Psychiatric: Orientation: alert and oriented x 3 Affect: euthymic affect Results & Data Vital Signs (Past 12 Hours) Vital Signs Temp Pulse Pulse Resp BP Pulse Ox O2 Del Method 12/05/24 11:37 Room Air 12/05/24 11:37 77 18 138/68 97 Room Air 12/05/24 09:27 85 16 160/90 H 98 Room Air 12/05/24 08:46 84 20 115/56 L 94 12/05/24 08:42 64 12/05/24 08:40 96.8 F L 101 H 20 81/67 L 96 12/05/24 08:28 126 H 20 100 Room Air Coding Level of Care Code 16754 IN/OBS CONSULT LVL 4,60M Diagnoses Abdominal pain R10.9
--- NOTE | 2024-12-05 12:57 | CT Scan Report ---
CT angio abdomen pelvis w con CLINICAL HISTORY: 44 years-old Female with eval for ischemia mesenteric vein thrombosis acute mi d abdominal pain COMPARISON STUDY: CT abdomen and pelvis of same day TECHNIQUE: Following the IV administration of 118 cc of Optiray, CT angiogram of the abdomen and pelv is was performed from the lung bases the proximal femora. Images are reviewed in the axial, sagittal, and coronal planes. 3-D MIPS images are created and assessed. All measurements were obtained accordi ng to NASCET criteria. IV contrast was administered without complication. A dose lowering technique was utilized adhering to the principles of ALARA. CT DOSE: 700.64 mGy.cm FINDINGS: CT ABDOMEN/PELVIS: Clear lung bases. There is no pneumatosis or pneumoperitoneum. Unremarkable spleen , pancreas, gallbladder and adrenal glands. Hepatic steatosis is most pronounced in the left lobe merlin rounding the falciform ligament. Unremarkable appearance of the kidneys. No hydronephrosis. No fillin g defects identified within the collecting systems or ureters. Unremarkable urinary bladder. Probable leiomyoma within the right mid uterus measuring approximately 4 cm. Small amount of free pelvic flui d. Probable follicles noted within the ovaries. No lymphadenopathy. Mild nonspecific distal esophageal wall thickening. Mural fibrofatty changes are noted throughout the majority of the large bowel which is mostly decompressed. The appendix measures upper limits of normal 7 mm and is elongated extending superiorly along the inferior right hepatic lo be and appears noninflamed. The terminal ileum is normal. There is redemonstration of circumferential wall thickening involving a loop of ileum within the right lower quadrant abdomen which demonstrates interval loop edema trace ascites. There is again a focal area of high-grade luminal narrowing on im age 89 series 3 with mild swirling of the mesentery. The loop upstream to this measures 2.6 cm trans versely. Small fat filled umbilical hernia. CTA: No abdominal aortic aneurysm, dissection or significant atherosclerosis. There is patency of the celiac trunk, superior and inferior mesenteric arteries. No active extravasation. IMPRESSION: 1. Focal high-grade luminal narrowing involving a loop of ileum within the abdominal right lower quad rant with upstream dilation, wall thickening, interloop edema and trace ascites is suspicious for an internal hernia with developing obstruction. A closed-loop etiology could also be present. Surgical c onsultation is needed. 2. The appendix measures within the upper limits of normal in diameter however appears to be uninflam ed. 3. Normal terminal ileum with nonspecific fibrofatty changes of the colon. 4. Normal CTA. 5. No pneumoperitoneum. Findings were discussed with Dr. Dee on 12/05/2024 at 12:50 PM. ACT 112: Negative or not required by law. The above report was generated using voice recognition software. It may contain grammatical, syntax o r spelling errors. Electronically signed by: Tom Singh M.D. 12/05/2024 12:56 PM
[2024-12-05] MEDS ORDERED: PROPOFOL IV EMULSION 10 MG/ML 20 ML VIAL IV ONE (13:19)
[2024-12-05] MEDS ORDERED: ROCURONIUM BROMIDE 10 MG/ML 5 ML VIAL IV ONE ×2 (13:19→15:05)
[2024-12-05] MEDS ORDERED: ONDANSETRON INJ 2 MG/ML 2 ML VIAL ONE (13:19)
[2024-12-05] MEDS ORDERED: LIDOCAINE 2% 2 ML VIAL/AMP(20MG/ML) INFIL ONE (13:19)
[2024-12-05] MEDS ORDERED: DEXAMETHASONE SOD INJ 4 MG/ML VIAL ONE (13:19)
[2024-12-05] MEDS ORDERED: MIDAZOLAM HCL 1 MG/ML 2ML VIAL ONE (13:22)
[2024-12-05] MEDS ORDERED: fentaNYL citrate PF 100 MCG/2 ML VIAL ONE ×2 (13:23→15:06)
[2024-12-05] MEDS ORDERED: SUCCINYLCHOLINE CHLORIDE 20 MG/ML 10 ML VIAL IV ONE (13:24)
--- NOTE | 2024-12-05 13:29 | Communication Note ---
Date of Service: December 05, 2024 CTA shows patent arteries. Reviewed with Dr. Hayden high-grade bowel obstruction with closed-loop obstruction. Internal hernia. Not felt to be mesenteric a rterial or venous occlusion. Reviewed with hospitalist. Plan for OR today.
--- NOTE | 2024-12-05 13:56 | Anesthesiology Consultation ---
Date of Service December 05, 2024 Assessment & Plan Chart Review Chart Review: Acceptable Risk for Surgery Consults Requested none History Surgery Operation Date: 12/05/24 09:30 Proposed Procedures p Exploratory Laparoscopy, Possible Open, Possible Bowel Resection - Jose Juan Gill, Height/Weight Height: 5 ft 3 in Weight: 62.2 kg Allergies Allergy/AdvReac Type Severity Reaction Status Date / Time Sulfa (Sulfonamide AdvReac Intermediate Vomiting Verified 12/05/24 13:48 Antibiotics) Medications Home Medications Medication Instructions Recorded Confirmed Last Taken cholecalciferol (vitamin D3) 25 25 mcg PO DAILY 06/27/24 12/05/24 12/04/24 mcg (1,000 unit) tablet mecobalamin (vitamin B12) 1,000 1,000 mcg PO DAILY #30 tabs 11/10/24 12/05/24 12/04/24 mcg chewable tablet primidone 250 mg tablet 375 mg (1.5 x 250 mg) PO HS #45 11/10/24 12/05/24 12/04/24 tabs venlafaxine 75 mg capsule,extended 75 mg PO DAILY 30 days #30 caps 11/10/24 12/05/24 12/04/24 release 24 hr Active Medications Generic Name Dose Route Start Last Admin Trade Name Freq PRN Reason Stop Dose Admin Lactated Ringer's 1,000 mls @ 125 mls/hr 12/05/24 11:30 12/05/24 12:49 Lr IV 12/08/24 11:29 125 mls/hr .Q8H PARI Administration NPO Date Last Intake of Fluids: 12/04/24 Time Last Intake of Fluids: 21:00 Date Last Intake of Solids: 12/04/24 Time Last Intake of Solids: 18:30 Past Family History Family History Mother Breast cancer Hypertension Father Hypertension Denies family history of Ovarian cancer Prostate cancer Diabetes Dementia Depression Heart disease Myocardial infarction Lung cancer Colorectal cancer Stroke Past Surgical History Surgical History Hx of section Social History Smoking Status: Never smoker Do You Dip or Chew Tobacco: No Hx Alcohol Use: Yes Alcohol type: beer, wine and hard liquor alcohol intake frequency: a few times a month Hx Substance Use: No Physical Exam Vital Signs Last Vital Signs Temp 37.2 C 12/05/24 13:45 Pulse 90 12/05/24 13:45 Resp 20 12/05/24 13:45 BP 150/80 H 12/05/24 13:45 Pulse Ox 96 12/05/24 13:45 O2 Del Method Room Air 12/05/24 13:45 Testing Laboratory Results 12/05/24 08:39 12/05/24 08:39 Urine Color Yellow 12/05/24 Unknown Urine Appearance Clear (Clear) 12/05/24 Unknown Urine pH 6.0 (4.5-7.5) 12/05/24 Unknown Ur Specific [place] > 1.045 (1.000-1.030) H 12/05/24 Unknown Urine Protein Negative (Negative) 12/05/24 Unknown Urine Glucose (UA) Negative (Negative) 12/05/24 Unknown Urine Ketones 3+ (Negative) H 12/05/24 Unknown Urine Nitrite Negative (Negative) 12/05/24 Unknown Ur Leukocyte Esterase Negative (Negative) 12/05/24 Unknown Urine WBC (Auto) 0-5 /hpf (0-5) 12/05/24 Unknown Urine RBC (Auto) 0-2 /hpf (0-2) 12/05/24 Unknown U Hyaline Cast (Auto) 0-2 /lpf (0-2) 12/05/24 Unknown U Epithel Cells (Auto) 6-10 /hpf (0-2) H 12/05/24 Unknown Urine Bacteria (Auto) 1+ (None Seen) H 12/05/24 Unknown 12/05/24 08:45 POC Glucose (other) 133 H
[2024-12-05] MEDS ORDERED: fentaNYL citrate PF 100 MCG/2 ML VIAL IV PRN (14:10)
[2024-12-05] MEDS ORDERED: ONDANSETRON INJ 2 MG/ML 2 ML VIAL IV PRN (14:10)
[2024-12-05] MEDS ORDERED: ATROPINE SULFATE 0.1 MG/ML 10ML SYR IV PRN (14:10)
[2024-12-05] MEDS ORDERED: HYDROmorphone INJ 2 MG/ML SYR/VIAL IV PRN (14:10)
[2024-12-05] MEDS ORDERED: ePHEDrine sulfate 50 MG/ML AMP IV PRN (14:10)
[2024-12-05] MEDS ORDERED: PROMETHAZINE HCL 6.25 MG in SODIUM CHLORIDE 0.9% 50 ML IV PRN (14:10)
[2024-12-05 14:29] LABS: Pregnancy Test, Serum Negative (Negative)
[2024-12-05] MEDS: metroNIDAZOLE 500 MG/100 ML BAG IV STA (14:33)
[2024-12-05] MEDS ORDERED: SUGAMMADEX SODIUM 200 MG/2 ML VIAL IV ONE (15:22)
[2024-12-05] MEDS: BUPIVACAINE/EPINEPHRINE 0.5% MPF 1:200,000 30 ML VIAL ONE (15:26)
--- NOTE | 2024-12-05 15:49 | Operative Report ---
PG Post Operative Report Pre & Post Diagnosis Operation Date: 12/05/24 09:30 Pre-Op Diagnosis: abdominal pain/internal hernia Post-Op Diagnosis: Internal hernia;small bowel obstruction with ischemia; umbilical hernia I identified the patient and participated in the time-out.: Yes Procedure Operation Date: 12/05/24 09:30 Actual Procedures p Diagnostic Laparoscopy, Release of Small Bowel Obstruction, Enterolysis, Repair of Umbilical Hernia(Not Applicable) - Jose Juan Gill DO Surgeon Jose Juan Gill DO Upholstery Cutter chante Zamarripa Estimated Blood Loss 5 Findings Consistent with Post-Op Diagnosis Specimens none Description of Procedure After informed consent was obtained the patient was taken to the operating room and placed in supine position. After successful intubation a Meneses catheter was placed sterilely. The arms were tucked. The abdomen was sterilely prepped and draped in usual fashion. When she was under general anesthetic there was an obvious small umbilical hernia. I decided to use this as my camera port. An infraumbilical incision was made with a 15 blade scalpel. This was carried down through the soft tissues and cautery. A Mar clamp was used to come around the superior aspect of the umbilicus. The umbilical stalk was detached exposing a 2 cm hernia defect. The sac was taken down using cautery and discarded. 0 Vicryl stay sutures were placed on either side of the fascial defect. A 12 mm Hsu trocar was placed and the abdomen was insufflated to 18 mmHg. Laparoscope was inserted and the abdomen was examined 360 degrees. There was some free serous fluid in the pelvis otherwise initially no gross abnormalities were seen. A left upper quadrant 5 mm trocar was placed. I began looking on the right side of the abdomen where the abnormality on CT scan was identified. There was twisted and dilated and ischemic small bowel. At this point I placed a second left mid abdominal 5 mm trocar. When I pulled the omentum medially I was able to expose an in adhesion from the omentum to the small bowel mesentery causing an internal hernia. This was causing the small bowel obstruction and associated ischemia. There was no evidence of infarction. I was able to bluntly divide the omental adhesion and this immediately released the small bowel obstruction. I did run the bowel from the terminal ileum past the area of obstruction. There were no other abnormalities. The small bowel immediately began to pink up. I thoroughly irrigated the right side of the abdomen as well as pelvis again. A final look around the abdomen showed no other abnormalities. The trocars were all removed and the abdomen desufflated. The fascia of the hernia was closed using #1 Ethibond in simple interrupted fashion. The umbilical stalk was replaced using 0 Vicryl. The incisions were all thoroughly irrigated. The hernia site was closed using 3-0 Vicryl for deep layers and 4 Monocryl for skin. The smaller incisions were closed using 4 Monocryl. Marcaine with epinephrine were injected around all the incisions for postoperative analgesia and Dermabond glue used as a dressing. Patient was awakened extubated and transferred recovery in stable condition. My physician life science research assistant was present through the entire case was instrumental in accessing the abdomen running the camera during my procedure wound closure and dressing placement. I attest to the content of the Intraoperative Record and any orders documented therein. Any exceptions are noted below.
[2024-12-05] MEDS ORDERED: PIPERACILLIN/TAZOBACTAM 4.5 GM/100 ML BAG IV SCH (16:30)
[2024-12-05] MEDS: PIPERACILLIN/TAZOBACTAM 4.5 GM/100 ML BAG IV SCH (16:54)
[2024-12-05] MEDS: ACETAMINOPHEN 1,000 MG/100 ML VIAL IV SCH (16:54)
--- NOTE | 2024-12-05 17:35 | Anesthesiology Progress Note ---
Date of Service December 05, 2024 Anesthesia Post Procedure Vital Signs Vital Signs: Temp Pulse Pulse Pulse Resp BP Pulse Ox 12/05/24 17:15 36.6 C 85 18 114/73 95 12/05/24 16:45 37.3 C 87 120/76 92 12/05/24 16:20 95 H 18 121/67 100 12/05/24 16:10 37.1 C 99 H 16 128/70 98 12/05/24 16:00 112 H 14 115/78 96 12/05/24 15:50 36.5 C 125 H 12 118/61 96 12/05/24 14:48 82 12/05/24 13:45 37.2 C 90 20 150/80 H 96 12/05/24 11:37 12/05/24 11:37 77 18 138/68 97 12/05/24 09:27 85 16 160/90 H 98 12/05/24 08:46 84 20 115/56 L 94 12/05/24 08:42 64 12/05/24 08:40 36.0 C L 101 H 20 81/67 L 96 12/05/24 08:28 126 H 20 100 O2 Del Method O2 Flow Rate 12/05/24 17:15 Room Air 12/05/24 16:45 Room Air 12/05/24 16:20 Nasal Cannula 2 12/05/24 16:10 Nasal Cannula 2 12/05/24 16:00 Nasal Cannula 3 12/05/24 15:50 Nasal Cannula 3 12/05/24 14:48 12/05/24 13:45 Room Air 12/05/24 11:37 Room Air 12/05/24 11:37 Room Air 12/05/24 09:27 Room Air 12/05/24 08:46 12/05/24 08:42 12/05/24 08:40 12/05/24 08:28 Room Air Pain Intensity Abdomen: Pain Intensity: 9 Transfer of Care Handoff Completed per policy Notes Mental Status: alert / awake / arousable and participated in evaluation Patient Amnestic to Procedure: Yes Nausea / Vomiting: adequately controlled Pain: adequately controlled Airway Patency, RR, SpO2: stable & adequate BP & HR: stable & adequate Hydration State: stable & adequate Anesthetic Complications: no major complications apparent and Pt Satisfied with anesthetic care
--- NOTE | 2024-12-05 18:32 | Electrocardiogram Report ---
Test Reason : Blood Pressure : */* mmHG Vent. Rate : 94 BPM Atrial Rate : 94 BPM P-R Int : 184 ms QRS Dur : 82 ms QT Int : 404 ms P-R-T Axes : 45 29 59 degrees QTcB Int : 505 ms Normal sinus rhythm Prolonged QT Abnormal ECG No previous ECGs available Confirmed by Yovani Greene ([id number]) on 12/05/2024 6:32:29 PM Referred By: REFERRED SELF Confirmed By: Yovani Greene
[2024-12-05] MEDS: PANTOprazole 40 MG/10 ML SYR IV SCH (21:08)
[2024-12-05] MEDS: KETOROLAC TROMETHAMINE 15 MG/ML VIAL IV PRN (21:12)
[2024-12-06 06:35] LABS: Basophils # (auto) 0.03 K/uL (0.00-0.20); Basophils % (auto) 0.6 %; Eosinophils # (auto) 0.01 K/uL (0.00-0.50); Eosinophils % (auto) 0.2 %; Hematocrit (blood only) 34.8 % (37.0-47.0); Immature Granulocytes # (auto) 0.02 K/uL (0.01-0.20); Immature Granulocytes % (auto) 0.4 %; Lymphocytes % (auto) 17.4 %; Mean Corpuscular Hemoglobin 33.7 pg (25.0-34.0); Mean Corpuscular Hgb Conc 34.5 g/dL (32.0-36.0); Mean Corpuscular Volume 97.8 fL (80.0-100.0); Mean Platelet Volume 9.9 fL (9.4-12.4); Monocytes # (auto) 0.53 K/uL (0.11-0.59); Monocytes % (auto) 10.2 %; Neutrophils # (auto) 3.69 K/uL (1.40-6.50); Neutrophils % (auto) 71.2 %; Platelet Count 207 K/uL (130-400); RDW Coefficient of Variation 12.4 % (11.5-14.5); RDW Standard Deviation 44.7 fL (36.4-46.3); Red Blood Count 3.56 M/uL (4.20-5.40); White Blood Count 5.18 K/ul (4.8-10.8)
[2024-12-06 06:48] LABS: Albumin Globulin Ratio 1.5 (0.9-2); Albumin Level 3.2 gm/dl (3.4-5.0); BUN Creatinine Ratio 9.5 (10-20); Bilirubin,Total 0.6 mg/dl (0.2-1.0); Calcium 7.4 mg/dl (8.6-10.3); Creatinine Clr Calc Pharmacy 96.2 ml/min; Globulin 2.1 gm/dl (2.5-4.0); Potassium 3.2 mmol/L (3.5-5.1); Total Protein 5.3 gm/dl (6.0-8.3)
[2024-12-06] MEDS: POTASSIUM CHLORIDE 20 MEQ/15 ML UDC PO STA (08:13)
[2024-12-06] MEDS: POTASSIUM CHLORIDE CRTAB 20 MEQ TABCR PO SCH (08:16)
--- NOTE | 2024-12-06 08:49 | Surgery Progress Note ---
Date of Service December 06, 2024 Assessment & Plan (1) Status post laparoscopy: Plan: Diagnostic Laparoscopy, Release of Small Bowel Obstruction, Enterolysis, Repair of Umbilical Hernia 12/05/24 pt doing well, no c/o n/v tolerating clears will advance to fulls + flatus no bm , encourage ambulation VSS afebrile surgical site cdi no s/s infection potassium repletion IS q1h while awake as above. feeling much better than yesterday. labs improved. on full liquid diet. not quite ready for d/c. hopefully d/c tomorrow Admission and Anticipated Discharge Date Admission Date: December 05, 2024 Subjective pt reports some abd discomfort last night +flatus denies cp, sob, n/v, f/c Review of Systems Constitutional: no fever and no chills Respiratory: no dyspnea Cardiovascular: no chest pain Gastrointestinal: + abdominal pain; no nausea and no vomit ing Genitourinary: no dysuria Physical Exam Constitutional: cooperative and comfortable; no acute distress Respiratory: normal respiratory effort and able to speak in complete sente nces; no respiratory distress Gastrointestinal (Abdomen): Inspection/Auscultation: + abdominal surgical incision (ecchymosis, dermabond CDI ); abdomen not distended Percussion/Palpation: abdomen soft Results & Data Vital Signs (Past 12 Hours) Vital Signs Temp Pulse Pulse Pulse Resp BP Pulse Ox 12/06/24 07:41 98.6 F 76 18 119/75 96 12/06/24 07:17 74 12/06/24 02:34 99.1 F 82 18 122/73 97 12/05/24 22:26 99.0 F 98 H 18 129/75 95 12/05/24 21:36 103 H O2 Del Method 12/06/24 07:41 Room Air 12/06/24 07:17 12/06/24 02:34 Room Air 12/05/24 22:26 Room Air 12/05/24 21:36 Results CBC w Diff Results: RBC 3.56 M/uL (4.20-5.40) L 12/06/24 WBC 5.18 K/ul (4.8-10.8) 12/06/24 Hgb 12.0 g/dl (12.0-16.0) 12/06/24 Hct 34.8 % (37.0-47.0) L 12/06/24 MCV 97.8 fL (80.0-100.0) 12/06/24 MCH 33.7 pg (25.0-34.0) 12/06/24 MCHC 34.5 g/dL (32.0-36.0) 12/06/24 RDW Standard Deviation 44.7 fL (36.4-46.3) 12/06/24 RDW Coefficient of Variation 12.4 % (11.5-14.5) 12/06/24 Plt Count 207 K/uL (130-400) 12/06/24 MPV 9.9 fL (9.4-12.4) 12/06/24 Neutrophils (%) (Auto) 71.2 % 12/06/24 Lymphocytes (%) (Auto) 17.4 % 12/06/24 Monocytes # (Auto) 0.53 K/uL (0.11-0.59) 12/06/24 Eosinophils # (Auto) 0.01 K/uL (0.00-0.50) 12/06/24 Immature Granulocyte % (Auto) 0.4 % 12/06/24 Neutrophils # (Auto) 3.69 K/uL (1.40-6.50) 12/06/24 Lymphocytes # (Auto) 0.90 K/uL (1.20-3.40) L 12/06/24 Monocytes # (Auto) 0.53 K/uL (0.11-0.59) 12/06/24 Eosinophils # (Auto) 0.01 K/uL (0.00-0.50) 12/06/24 Basophils # (Auto) 0.03 K/uL (0.00-0.20) 12/06/24 Immature Granulocyte # (Auto) 0.02 K/uL (0.01-0.20) 5 PG Care Time/CCT Total # of Minutes Spent Total Time Spent with Patient: Total time spent is greater than 50% in coordination of care (as documented) at patient's floor/unit and/or counseling patient: Coding Level of Care Code 88957 Post Operative Follow-Up Diagnoses Status post laparoscopy Z98.890
[2024-12-06] MEDS: MoRPHine SULFATE 2 MG/ML CARP IV PRN (10:49)
--- NOTE | 2024-12-06 11:22 | Gastroenterology Progress Note ---
Date of Service December 06, 2024 Assessment & Plan (1) Umbilical hernia: Plan: Patient has had resolution of her symptoms s/p surgical repair. no current GI concerns. discussed with Dr. Kapoor. GI will sign off, please recall as needed. Admission and Anticipated Discharge Date Admission Date: December 05, 2024 Subjective Patient feels significantly better today. she is s/p a release of Small Bowel Obstruction, Enterolysis, Repair of Umbilical Hernia 12/05/24. only mild incisional pain today. rest of ROS are unremarkable. Review of Systems Review of Systems: All systems reviewed & are unremarkable except as noted in HPI & below Physical Exam Constitutional: WD/WN, vitals as above Respiratory: normal respiratory effort, lungs clear to auscultation Cardiovascular: Rate/Rhythm: regular rate and regular rhythm Gastrointestinal (Abdomen): mild incisional tenderness. soft. normal bowel sounds. Psychiatric: Orientation: alert and oriented x 3 Affect: euthymic affect Results & Data Results & Data Vital Signs (Past 12 Hours) Vital Signs Temp Pulse Pulse Pulse Resp BP Pulse Ox 12/06/24 07:41 98.6 F 76 18 119/75 96 12/06/24 07:17 74 12/06/24 02:34 99.1 F 82 18 122/73 97 O2 Del Method 12/06/24 07:41 Room Air 12/06/24 07:17 12/06/24 02:34 Room Air PG Care Time/CCT Total # of Minutes Spent Total Time Spent with Patient: Total time spent is greater than 50% in coordination of care (as documented) at patient's floor/unit and/or counseling patient: Coding Level of Care Code 93142 SUB INP/OBS CARE 08/20MIN Diagnoses Umbilical hernia K42.9
[2024-12-06] MEDS ORDERED: ACETAMINOPHEN 325 MG TAB PO PRN (13:02)
[2024-12-06] MEDS ORDERED: oxyCODONE HCL IR 5 MG TAB (IMMEDIATE RELEASE) PO PRN (13:02)
[2024-12-06] MEDS: ONDANSETRON INJ 2 MG/ML 2 ML VIAL IV PRN (13:27)
[2024-12-06] MEDS: oxyCODONE HCL IR 5 MG TAB (IMMEDIATE RELEASE) PO PRN (15:11)
--- NOTE | 2024-12-06 16:06 | Hospitalist Progress Note ---
Date of Service December 06, 2024 Assessment & Plan (1) Septic shock: (2) Colitis: (3) Umbilical hernia: (4) Small bowel obstruction: Plan This is a 44-year-old female with past medical history of acute adjustment disorder with mixed anxiety/depression and benign essential tremor who presented to the emergency department on 12/05/2024 with a chief complaint of abdominal pain #Umbilical hernia/small bowel obstruction/septic shockawoke suddenly around 5:30 on 12/05 with severe abdominal pain, nausea, vomiting Patient did meet criteria of septic shock at time of admission including hypotension, tachycardia, elevated lactate of 7.9, original source of infection was colitis found on imaging, WBC greater than 12 CTAP: Mild diffuse colitis/small area of focal enteritis. Seen in the setting of underlying Crohn's disease. Inflamed small bowel loops mildly dilated. CTA of abdomen: Focal high-grade luminal narrowing involving a loop of ileum within the abdominal right lower quadrant with upstream dilation, wall thickening, interloop edema and trace ascites suspicious for an internal hernia with developing obstruction. Closed-loop etiology could also be present. CBC with resolution of leukocytosis. BMP with low potassium at 3.2, s/p repletion Lactate did downtrend to 2.3 (initially 7.9) Urine culture pending, blood cultures negative at 24 hours Surgery consulteds/p diagnostic laparoscopy with release of small bowel obstruction on 12/[address] Gill GI originally consulted due to concern for colitis but have since signed off given resolution of symptoms s/p surgical repair Currently on full liquid diet, will plan to advance as tolerated. Antibiotics discontinued by surgery team 12/06 AM CBC, CMP #Anxiety/Depression: Effexor - hold until able to tolerate PO #Essential tremor - Primidone - hold until able to tolerate PO DVT Proph- SCDs Dispo-admit to tele Updated at bedside 12/06. Discussed w/ surgical team 12/06 Anticipate discharge home 12/07. Admission and Anticipated Discharge Date Admission Date: December 05, 2024 Supervising Physician Co-Signing Physician Notes YUNIEL Supervision Note: I did not personally see or examine the patient today, but I verified all carrillo points of YUNIEL Dee's assessment and plan with the following exceptions/additions: Okay to resume home Effexor and primidone Kenyatta Blancas was seen and examined this morning with her present. She reports pain around her incision site. She has not had a BM but is passing flatus. She denies any further nausea/vomiting. Physical Exam Physical Exam: General: no acute distress; non-toxic appearing; well-nourished; cooperative HEENT: normocephalic, atraumatic; no scleral icterus; PERRLA w/ EOMs intact; vision and hearing grossly intact Lungs: no acute respiratory distress; symmetrical chest wall expansion MSK: no edema noted in the LEs b/l, nonerythematous Neuro: A&Ox3; normal mood and affect; fluent speech; no focal deficits Results & Data Results & Data Vital Signs (Past 12 Hours) Vital Signs Temp Pulse Pulse Resp BP Pulse Ox Pulse Ox 12/06/24 15:33 37.3 C 75 18 111/71 95 12/06/24 15:00 82 12/06/24 11:21 93 12/06/24 11:20 37.2 C 82 18 122/78 93 12/06/24 07:41 37.0 C 76 18 119/75 96 12/06/24 07:17 74 O2 Del Method O2 Del Method 12/06/24 15:33 Room Air 12/06/24 15:00 12/06/24 11:21 Room Air 12/06/24 11:20 Room Air 12/06/24 07:41 Room Air 12/06/24 07:17 PG Care Time/CCT Total # of Minutes Spent Total Time Spent with Patient: Total time spent is greater than 50% in coordination of care (as documented) at patient's floor/unit and/or counseling patient: Coding Level of Care Code 87163 SUB INP/OBS CARE 3/50MIN Diagnoses Septic shock A41.9; R65.21 Colitis K52.9 Umbilical hernia K42.9 Small bowel obstruction K56.609
[2024-12-06] MEDS: PRIMIDONE 250 MG TAB PO SCH (20:07)
[2024-12-07 06:35] LABS: Basophils # (auto) 0.02 K/uL (0.00-0.20); Basophils % (auto) 0.4 %; Eosinophils # (auto) 0.08 K/uL (0.00-0.50); Eosinophils % (auto) 1.7 %; Hemoglobin 12.1 g/dl (12.0-16.0); Immature Granulocytes # (auto) 0.02 K/uL (0.01-0.20); Immature Granulocytes % (auto) 0.4 %; Lymphocytes % (auto) 25.4 %; Mean Corpuscular Hgb Conc 34.6 g/dL (32.0-36.0); Mean Corpuscular Volume 98.3 fL (80.0-100.0); Monocytes # (auto) 0.34 K/uL (0.11-0.59); Monocytes % (auto) 7.2 %; Neutrophils # (auto) 3.07 K/uL (1.40-6.50); Neutrophils % (auto) 64.9 %; Platelet Count 197 K/uL (130-400); RDW Coefficient of Variation 12.2 % (11.5-14.5); Red Blood Count 3.56 M/uL (4.20-5.40); White Blood Count 4.73 K/ul (4.8-10.8)
[2024-12-07 07:10] LABS: Albumin Globulin Ratio 1.6 (0.9-2); Albumin Level 3.2 gm/dl (3.4-5.0); BUN Creatinine Ratio 7.8 (10-20); Bilirubin,Total 0.5 mg/dl (0.2-1.0); Calcium 7.9 mg/dl (8.6-10.3); Creatinine Clr Calc Pharmacy 118.9 ml/min; Potassium 3.3 mmol/L (3.5-5.1); Total Protein 5.2 gm/dl (6.0-8.3)
[2024-12-07 07:42] VITALS: RESP 18
[2024-12-07] MEDS: VENLAFAXINE HCL XR 75 MG CAPXR PO SCH (08:15)
--- NOTE | 2024-12-07 10:57 | Surgery Progress Note ---
Date of Service December 07, 2024 Assessment & Plan (1) H/O laparoscopy: Plan: Doing well. Will advance diet for lunch. Okay for discharge after lunch from my standpoint. Instructions given Admission and Anticipated Discharge Date Admission Date: December 05, 2024 Subjective Patient seen. Feeling well. Tolerating liquids. Would like to go home Physical Exam Physical Exam: Alert. No acute distress Abdomen soft. Incisions with some mild erythema likely reactive to the Dermabond glue. Results & Data Vital Signs (Past 12 Hours) Vital Signs Temp Pulse Pulse Resp BP Pulse Ox O2 Del Method 12/07/24 10:24 67 12/07/24 07:48 Room Air 12/07/24 07:41 37.0 C 68 18 124/77 94 Room Air 12/07/24 02:37 36.6 C 80 16 144/81 H 96 Room Air 12/06/24 23:40 74 PG Care Time/CCT Total # of Minutes Spent Total Time Spent with Patient: Total time spent is greater than 50% in coordination of care (as documented) at patient's floor/unit and/or counseling patient: Coding Level of Care Code 66261 Post Operative Follow-Up Diagnoses H/O laparoscopy Z98.890
[2024-12-07 11:15] VITALS: BP 138/83; PULSE 69; TEMP 98.2; O2SAT 97
--- NOTE | 2024-12-07 11:23 | History & Physical Report ---
Date of Service December 07, 2024 Assessment & Plan (1) Septic shock: (2) Colitis: (3) Umbilical hernia: (4) Small bowel obstruction: Plan This is a 44-year-old female with past medical history of acute adjustment disorder with mixed anxiety/depression and benign essential tremor who presented to the emergency department on 12/05/2024 with a chief complaint of abdominal pain #Umbilical hernia/small bowel obstruction/septic shockawoke suddenly around 5:30 on 12/05 with severe abdominal pain, nausea, vomiting Patient did meet criteria of septic shock at time of admission including hypotension, tachycardia, elevated lactate of 7.9, original source of infection was colitis found on imaging, WBC greater than 12 CTAP: Mild diffuse colitis/small area of focal enteritis. Seen in the setting of underlying Crohn's disease. Inflamed small bowel loops mildly dilated. CTA of abdomen: Focal high-grade luminal narrowing involving a loop of ileum within the abdominal right lower quadrant with upstream dilation, wall thickening, interloop edema and trace ascites suspicious for an internal hernia with developing obstruction. Closed-loop etiology could also be present. CBC with resolution of leukocytosis. BMP with low potassium at 3.2, s/p repletion Lactate did downtrend to 2.3 (initially 7.9) Urine culture pending, blood cultures negative at 24 hours Surgery consulteds/p diagnostic laparoscopy with release of small bowel obstruction on 12/[address] Gill GI originally consulted due to concern for colitis but have since signed off given resolution of symptoms s/p surgical repair Currently on full liquid diet, will plan to advance as tolerated. Antibiotics discontinued by surgery team 12/06 AM CBC, CMP #Anxiety/Depression: Effexor - hold until able to tolerate PO #Essential tremor - Primidone - hold until able to tolerate PO DVT Proph- SCDs Dispo-admit to tele Updated at bedside 12/06. Discussed w/ surgical team 12/06 Anticipate discharge home 12/07. Admission and Anticipated Discharge Date Admission Date: December 05, 2024 History of Present Illness Primary Care Provider: JASWINDER Blakely Allergies Allergy/AdvReac Type Severity Reaction Status Date / Time Sulfa (Sulfonamide AdvReac Intermediate Vomiting Verified 12/05/24 13:48 Antibiotics) Home Medications Medication Instructions Recorded Confirmed Type cholecalciferol (vitamin D3) 25 25 mcg PO DAILY 06/27/24 12/05/24 History mcg (1,000 unit) tablet mecobalamin (vitamin B12) 1,000 1,000 mcg PO DAILY #30 tabs 11/10/24 12/05/24 Rx mcg chewable tablet primidone 250 mg tablet 375 mg (1.5 x 250 mg) PO HS #45 11/10/24 12/05/24 Rx tabs venlafaxine 75 mg capsule,extended 75 mg PO DAILY 30 days #30 caps 11/10/24 12/05/24 Rx release 24 hr oxycodone 5 mg tablet 5 - 10 mg (1 - 2 x 5 mg) PO 12/07/24 Rx .[id number] PRN pain, for initial therapy, max 6 tabs per day #15 tabs Past Med/Surg History Problem List (Updated 12/06/24 @ 16:18 by Yesi Dee PA-C) H/O laparoscopy (12/05/24) Diagnostic Laparoscopy, Release of Small Bowel Obstruction, Enterolysis, Repair of Umbilical Hernia - Jose Juan Gill DO Small bowel obstruction Umbilical hernia Status post laparoscopy Elevated lactic acid level (Acute) Enteritis (Acute) Colitis (Acute) Abdominal pain Septic shock Colitis Headache Acute adjustment disorder with mixed anxiety and depressed mood Benign essential tremor Low ferritin Vitamin D deficiency Tremor Surgical History (Updated 12/07/24 @ 10:57 by Jose Juan Gill DO) Hx of section 2012 2014 Family History Mother Breast cancer Hypertension Father Hypertension Denies family history of Ovarian cancer Prostate cancer Diabetes Dementia Depression Heart disease Myocardial infarction Lung cancer Colorectal cancer Stroke Social History Smoking Status: Never smoker Second Hand Exposure: No; Do You Dip or Chew Tobacco: No; Hx Alcohol Use: Yes Alcohol type: beer, wine and hard liquor Alcohol Intake Frequency: 4 or More x per/Week Hx Substance Use: No Preferred Language: Uzbek Communication Ability: Effective Visual Impairment: No Limitations Hearing Ability: Normal Teletype Mechanic Required: No Beliefs That Will Affect Care: None marital status: Current Living Situation: Spouse and Family Current Living Situation Comment: 3 story house with and 2 kids, 2 cats and one dog. current occupational status: unemployed How many Children do You have: 2 Feels Safe at Home: Yes Childhood Exposure to Second-Hand Smoke: No Diet: regular caffeine: Yes Dental Care, Regularly: Yes Physical Activity Frequency: Does not Exercise Seatbelt Use: always Sunscreen Use: Yes Assistive Devices: None Results & Data Results & Data Vital Signs (Past 12 Hours) Vital Signs Temp Pulse Pulse Resp BP Pulse Ox O2 Del Method 12/07/24 11:15 36.8 C 69 18 138/83 97 Room Air 12/07/24 10:24 67 12/07/24 07:48 Room Air 12/07/24 07:41 37.0 C 68 18 124/77 94 Room Air 12/07/24 02:37 36.6 C 80 16 144/81 H 96 Room Air 12/06/24 23:40 74 PG Care Time/CCT Total # of Minutes Spent Total Time Spent with Patient: Total time spent is greater than 50% in coordination of care (as documented) at patient's floor/unit and/or counseling patient: Coding Diagnoses Septic shock A41.9; R65.21 Colitis K52.9 Umbilical hernia K42.9 Small bowel obstruction K56.609
--- NOTE | 2024-12-07 16:08 | Discharge Summary ---
Discharge Summary Date of Service December 07, 2024 Principal Dx & Hospital Course #1 = Principal Diagnosis (1) Small bowel obstruction: (2) Umbilical hernia: (3) Status post laparoscopy: Plan #Umbilical hernia/small bowel obstruction/septic shockawoke suddenly around 5:30 on 12/05 with severe abdominal pain, nausea, vomiting Patient did meet criteria of septic shock at time of admission including hypoten humaira, tachycardia, elevated lactate of 7.9, original source of infection was colitis found on imaging, WBC greater than 12 CTAP: Mild diffuse colitis/small area of focal enteritis. Seen in the setting of underlying Crohn's disease. Inflamed small bowel loops mildly dilated. CTA of abdomen: Focal high-grade luminal narrowing involving a loop of ileum within the abdominal right lower quadrant with upstream dilation, wall thickening, interloop edema and trace ascites suspicious for an internal hernia with developing obstruction. Closed-loop etiology could also be present. CBC with resolution of leukocytosis; BMP with low potassium at 3.3, s/p repletion Lactate did downtrend to 2.3 (initially 7.9) Urine culture pending, blood cultures negative at 48 hours Surgery consulteds/p diagnostic laparoscopy with release of small bowel obstruction on 12/[address] Gill --> follow up outpatient GI originally consulted due to concern for colitis but have since signed off given resolution of symptoms s/p surgical repair Advanced to low fiber diet Antibiotics discontinued by surgery team 12/06 #Anxiety/Depression: Effexor #Essential tremor - Primidone Discussed w/ general surgery 12/07 --> patient discharged home Admission HPI Per Admitting Provider This is a 44-year-old female with past medical history of acute adjustment disorder with mixed anxiety/depression and benign essential tremor who presented to the emergency department on 12/05/2024 with a chief complaint of abdominal pain. The patient was seen and examined with her at bedside. She states that she awoke suddenly this morning around 5:30 AM with severe abdominal pain. She rates it a 10 out of 10 on the pain scale. She states that she has also had associated nausea and vomiting with this. She denies any hematemesis. She states that her last bowel movement was yesterday and it was normal for her. She denies any passage of blood from her bottom. She states that she has not passed gas since this started. She states that she did not eat anything atypical for her yesterday. She states that she did have some wine yesterday which was normal for her. She denies any illicit substance or tobacco use. She denies any chest pain, shortness of breath, lower extremity edema. She denies any urinary urgency/frequency/hematuria. She denies any significant GI family history. She also has had 2 C-sections in the past but denies any further surgeries. While in the emergency department she was found to be significantly hypotensive on arrival with a blood pressure of 81/67. This did improve after 1 L of IV fluids. She was found to have mild diffuse colitis and focal enteritis on her CTAP. Her CBC did reveal an elevated WBC of 12.82. Her potassium was mildly low at 3.3. Her renal function was within normal limits. Her lactate was found to be elevated at 7.9. Her LFTs did reveal a minimal elevation of her AST but remainder were WNL. Her lipase was negative at 34. She was given Dilaudid, Toradol, and Zofran without relief of her symptoms. She was also given Rocephin and Flagyl. Surgery also was consulted on the patient who had recommended to keep her n.p.o. and to repeat a lactic acid in 2 hours. If that have been elevated then consider CTA to evaluate for ischemic changes. It was also recommended by the surgical team to have a GI consultation as well. Procalcitonin, magnesium, blood cultures, urinalysis, stool studies all pending at time of admission. Discharge Exam General: no acute distress; non-toxic appearing; well-nourished; cooperative HEENT: normocephalic, atraumatic; no scleral icterus; PERRLA w/ EOMs intact; vision and hearing grossly intact Skin: warm, dry without signs of tenting; no cyanosis; no rashes, bruising, lesions, or erythema noted Lungs: no acute respiratory distress; symmetrical chest wall expansion Neuro: A&Ox3; normal mood and affect; fluent speech; no focal deficits Discharge Plan Discharge Items Patient Disposition: Home - Self-Care Reason For Visit: ABDOMINAL PAIN Discharge Diagnosis: diagnostic laparoscopy release of small bowel obstruction repair of umbilical hernia Condition on Discharge: Critical Activity: As commented below Lifting: No more than 10 pounds Bathing Comment: you can shower. No soaking in pools/bath for 2 weeks Exercise/Sports: Wait until after follow-up appointment Driving/Machine Use: no driving if taking narcotic pain medication Non-emergency contact: Surgeon Call non-emergency contact if: you have any medication questions, your symptoms worsen, your pain is not controlled, your pain is worsening, your temperature is above 101.5, your wound has increased redness, your wound has increased drainage and your wound pain has increased Follow-up/Referrals: Winston Kahn CRNP [Primary Care Provider] - 12/13/24 9:30 am Jose Juan Gill DO [Surgeon] - (call office for follow up in 1-2 weeks ) Diet: Low Fiber Addtl Attending Provider Instructions: SPECIAL CARE INSTRUCTIONS: * Dressing: You have surgical glue called dermabond on your surgical site incisions. You may shower with this on. This will tend to come off within a couple of weeks. Do not pick at it. Keep an eye on any wound redness. If it worsens you may call the office * You may shower . NO soaking in pools or baths for 2 weeks * No lifting greater than 10lbs. No exercise until cleared by surgeon. Light walking is accepted. * No driving while taking narcotic pain medication * No drinking alcohol while taking narcotic pain medication * May use Ibuprofen/Tylenol over the counter for pain as tolerated. Do not exceed 3grams of Tylenol per 24 hours * Expect some swelling and bruising. * Diet Regular Call your doctor if: * Temperature above 101 degrees, nausea/vomiting, fever/chills * Pain not relieved by pain medicine ordered * There is increased drainage or redness from any incision * You have any unanswered questions or concerns [phone]. FOLLOW UP VISIT: If not already scheduled, please call the office for a follow-up visit. Office Pending Studies at Discharge: No Stand-Alone Forms: My [email or web address], Smoking Cessation Medications and DC Order Prescriptions: New oxycodone 5 mg tablet 5 - 10 mg PO .[id number] PRN (Reason: pain, for initial therapy, max 6 tabs per day) Qty: 15 0RF Continued venlafaxine 75 mg capsule,extended release 24hr 75 mg PO DAILY 30 Days Qty: 30 2RF primidone 250 mg tablet 375 mg PO HS Qty: 45 5RF mecobalamin (vitamin B12) 1,000 mcg tablet,chewable 1,000 mcg PO DAILY Qty: 30 2RF cholecalciferol (vitamin D3) 25 mcg (1,000 unit) tablet 25 mcg PO DAILY Discharge Orders: Discharge Order (Routine); Ordered 12/07/24 Ordered By: Yesi Dee Admission Data Admit Date/Time: 12/05/24 11:20 Attending Provider: Kellie Doherty Admit Provider: Kellie Doherty Primary Care Provider: Winston Kahn Other Providers: Doreen Parada; Fernie Hernandez; Marichuy Rodgers; Nenita Joseph; Fallon Helm; Precious Griffith; Jayme Kellogg; Tristin Hodges; Shamika Rivera; Betty Cox; Shala Falcon; Sarai Zepeda; Aretha Bradley; Jessica Shabazz; Emani Sutherland; Jose Montez; Rakan Barnes; Muriel Vann; Fidencio Khoury Jr; Gama Aragon; Jeff Harris; Surendra Varma; Ravinder Medeiros; Smia Rocha; Lizandro Francisco I; Sowmya Teixeira; Fercho Kapoor; Tristan Bush; Kellie Doherty. Other Interventions: Discharge Summary Assessment (RN) Last Done: 12/07/24 12:37 Hospital Stay Data Consultations 12/05/24 11:20 Consult Gastroenterology Routine 12/05/24 11:59 ED Decision to Admit Stat Procedures Performed Operation Date: 12/05/24 09:30 Actual Procedures p Diagnostic Laparoscopy, Release of Small Bowel Obstruction, Enterolysis, (Not Applicable) - Jose Juan Gill DO s Repair of Umbilical Hernia(Not Applicable) - Jose Juan Gill DO Diagnostic Imagining Performed 12/05/24 08:46 CT Abd and Pelvis [CT abd pelvis IV con only] Stat 12/05/24 11:58 CT angio abdomen pelvis w con Stat Pending Results Patient Have Any Pending Studies at Discharge: No Discharge Instructions Given to Patient (Per Discharging Provider) SPECIAL CARE INSTRUCTIONS: * Dressing: You have surgical glue called dermabond on your surgical site incisions. You may shower with this on. This will tend to come off within a couple of weeks. Do not pick at it. Keep an eye on any wound redness. If it worsens you may call the office * You may shower . NO soaking in pools or baths for 2 weeks * No lifting greater than 10lbs. No exercise until cleared by surgeon. Light walking is accepted. * No driving while taking narcotic pain medication * No drinking alcohol while taking narcotic pain medication * May use Ibuprofen/Tylenol over the counter for pain as tolerated. Do not exceed 3grams of Tylenol per 24 hours * Expect some swelling and bruising. * Diet Regular Call your doctor if: * Temperature above 101 degrees, nausea/vomiting, fever/chills * Pain not relieved by pain medicine ordered * There is increased drainage or redness from any incision * You have any unanswered questions or concerns [phone]. FOLLOW UP VISIT: If not already scheduled, please call the office for a follow-up visit. Office Supervising Physician Co-Signing Physician Notes PA Supervision Note: I did not personally see or examine the patient today, but I verified all carrillo points of YUNIEL Dee's assessment and plan with the following exceptions/additions: None Total Time Total Time Spent Total Time Spent (In Minutes): 50 Total Time Includes: Examination of the Patient, Discharge Planning, Medication Reconciliation and Communication With Other Providers Coding Level of Care Code 97571 INP/OBS DISCH >30 MIN Diagnoses Small bowel obstruction K56.609 Umbilical hernia K42.9 Status post laparoscopy Z98.890
== END 2024-12-07 14:04 | disposition home or self-care (01) | DRG 335 ==
LOC: ED 08:26 → 2N 11:20